=== PATIENT | male | born 1955 ===

== ENCOUNTER 2016-12-22 08:06 | Day surgery (SDC) | payer MEDICAID ==
[2016-12-10 07:59] VITALS: BMI 31.2
[2016-12-22] MEDS ORDERED: Gentamicin 160 MG in Sodium Chloride 0.9% 100 ML IVPB ONE (10:00)
[2016-12-22] MEDS ORDERED: Ciprofloxacin 400mg/200ml D5W 400 MG/200 ML BAG IVPB ONE (10:07)
[2016-12-22] MEDS ORDERED: Lidocaine 2% Jelly (Uro-Jet) ONE (10:07)
[2016-12-22] MEDS ORDERED: Midazolam 2 MG/2 ML VIAL ONE (11:00)
[2016-12-22] MEDS ORDERED: Lactated Ringer's 1,000 ML IV ONE (11:00)
[2016-12-22] MEDS ORDERED: Propofol 10 mg/ml Inj (20 ML) ONE (11:00)
[2016-12-22] MEDS ORDERED: Lidocaine Hydrochloride 5 ML INJ ONE (11:43)
[2016-12-22] MEDS: HYDROmorphone 0.5 mg/0.5 ml ISec IVP PRN ×3 (12:06→13:07)
--- NOTE | 2016-12-22 12:09 | PCM.SURG1 ---
Surgeon's Initial Post Op Note - Surgeon's Notes Surgeon: Yasmin General Forecaster: CAITIE Type of Anesthesia: General LMA Anesthesia Administered By: Staff Pre-Operative Diagnosis: BPH/CHILEL/LUTS Operative Findings: BPH/CHILEL Post-Operative Diagnosis: BPH/CHILEL/LUTS Operation Performed: TULAP Specimen/Specimens Removed: NA Estimated Blood Loss: EBL {In ML}: 0 Blood Products Given: N/A Drains Used: No Drains Post-Op Condition: Good Date of Surgery/Procedure: 12/22/16 Time of Surgery/Procedure: 12:08
[2016-12-22 13:56] VITALS: RESP 16; TEMP 97.2
[2016-12-22 14:42] VITALS: BP 115/64; PULSE 67; O2SAT 99
--- NOTE | 2016-12-22 20:23 | OP ---
PROCEDURE DATE: 12/22/2016 PREOPERATIVE DIAGNOSES: Benign prostatic hypertrophy and bladder outlet obstruction with lower urinary tract symptoms. POSTOPERATIVE DIAGNOSES: Benign prostatic hypertrophy and bladder outlet obstruction with lower urinary tract symptoms. PROCEDURE: Transurethral laser ablation of the prostate (TULAP). FINDINGS: Trilobar hypertrophy of the prostate with significant outlet obstruction in the median lobe. DESCRIPTION OF PROCEDURE: Prior to the procedure, the patient was asked to sign a detailed informed consent. He is aware of the risks and complications of this procedure and alternative methods of treating BPH. He is willing to accept these risks including incontinence, impotence, urethral stricture, urinary retention, and injury to other organs due to laser scatter as well as other complications. He signed a detailed informed consent indicating he would accept these risks and complications. He was brought into the room and a time-out was taken according to the rules and regulations of [facility]. Patient received prophylactic antibiotics and with the cystoscope with a laser cystoscope previous cystoscopic findings were confirmed. The laser resectoscope was inserted within the cystoscope and the vaporization of the prostate was begun at 11 o'clock and carried down to 6 o'clock from just distal to the bladder neck to just proximal to the verumontanum. The left lateral lobe, the base tissue, and the roof tissue were vaporized in a similar fashion. The median lobe was then vaporized with extreme care to avoid injury to the bladder or ureteral orifices, and none occurred. The patient tolerated this well. There was no bleeding. The patient had a #20 two-way 5 mL catheter inserted after removing the resectoscope and the irrigant drainage was clear. The patient was sent to the recovery room in good condition. He will be given detailed postoperative instructions, a prescription for Cipro, and appointment for our office tomorrow to remove the Rolon catheter. Pranay Hoffman MD
== END 2016-12-22 14:31 | disposition hospice, home (50) ==
LOC: C.SDS 08:06
PROVIDERS: ATTEND Urology
DX: N40.1 Benign prostatic hyperplasia with lower urinary tract symptoms (principal); C61 Malignant neoplasm of prostate
CPT/HCPCS: 52648; J0744; J1170; J1580; J7120